=== PATIENT | female | born 1995 ===

== ENCOUNTER → 2025-03-29 11:33 | Outpatient (CLI) | payer OTHER, SELFPAY ==
[2025-03-29 14:18] LABS: Urine N gonorrhoeae NOT DETECTED
[2025-03-29 14:43] LABS: Urine Chlamydia NOT DETECTED
== END ==
PROVIDERS: Referring Provider Obstetrics & Gynecology; Visit Provider Obstetrics & Gynecology
DX: Z11.3 Encounter for screening for infections with a predominantly sexual mode of transmission (principal); Z3A.01 Less than 8 weeks gestation of pregnancy
CPT/HCPCS: 87491; 87591

== ENCOUNTER → 2025-04-18 09:56 | Outpatient (CLI) | payer OTHER, SELFPAY ==
[2025-04-18 10:14] LABS: Appearance Urine UA CLEAR; Bilirubin Urine UA NEGATIVE (NEGATIVE); Color Urine UA YELLOW; Glucose Urine UA NEGATIVE (Negative); Ketones Urine UA NEGATIVE (NEGATIVE); Leukocyte Esterase Urine UA 2+ (NEGATIVE); Nitrite Urine UA NEGATIVE (Negative); Occult Blood Urine UA NEGATIVE (Negative); Protein Urine UA NEGATIVE (Negative); Specific Gravity Urine UA 1.010 (1.000-1.035); Urobilinogen Urine UA 0.2 E.U./dL (0.2)
[2025-04-18 10:16] LABS: pH Urine UA 7.0 (4.5-8.0)
== END ==
PROVIDERS: Referring Provider Obstetrics & Gynecology; Visit Provider Obstetrics & Gynecology
DX: O26.899 Other specified pregnancy related conditions, unspecified trimester (principal); M54.50 Low back pain, unspecified
CPT/HCPCS: 81001; 87086

== ENCOUNTER → 2025-04-24 09:15 | Outpatient (CLI) | payer OTHER, SELFPAY ==
[2025-04-24 10:16] LABS: Add Manual Diff / Slide Review NO; Hematocrit 37.2 % (36-46); Hemoglobin 12.9 g/dL (12.0-16.0); Lymphocytes Absolute Auto 1600 /uL (1100-4500); Mean Corpuscular HGB Conc 34.7 % (30-36); Mean Corpuscular Hemoglobin 31.7 PG (26-34); Mean Corpuscular Volume 91.5 fL (80-100); Platelet Count 217 X10^3/uL (150-400)
[2025-04-24 10:38] LABS: Natera Collection Specimen Collected
[2025-04-24 11:02] LABS: Hepatitis B Surface Antigen NEGATIVE s/c (NEGATIVE)
[2025-04-24 11:20] LABS: HIV 1 & 2 Ab/Ag 4th Gen Combo NEGATIVE (NEGATIVE); Hep C Virus Ab w/Reflex Quant NEGATIVE s/c (NEGATIVE)
[2025-05-02 10:12] LABS: RPR QNT Non Reactive titer (NonRea<1:1); RPR Quant + RPR Abs Non Reactive (Non Reactive)
== END ==
PROVIDERS: Referring Provider Obstetrics & Gynecology; Visit Provider Obstetrics & Gynecology
DX: Z34.81 Encounter for supervision of other normal pregnancy, first trimester (principal); Z34.90 Encounter for supervision of normal pregnancy, unspecified, unspecified trimester; Z3A.10 10 weeks gestation of pregnancy
CPT/HCPCS: 36415; 80055; 86787; 86803; 86850; 86900; 86901; 87389

== ENCOUNTER → 2025-05-17 13:10 | Outpatient (CLI) | payer OTHER, SELFPAY ==
[2025-05-18 14:08] LABS: Trichomoas vaginalis Negative (Negative)
== END ==
PROVIDERS: PCP Family Medicine; Visit Provider Obstetrics & Gynecology
DX: N89.8 Other specified noninflammatory disorders of vagina (principal)
CPT/HCPCS: 87480; 87510; 87660

== ENCOUNTER → 2025-07-02 10:43 | Outpatient (CLI) | payer OTHER, SELFPAY ==
--- NOTE | 2025-07-02 10:45 | DI.US.S_ITS ---
PROCEDURE: US OB >= 14 WEEKS FETUS INDICATIONS: 20 weeks anatomy OUTSIDE/PRIOR DATING DATA: Last menstrual period (LMP): 02/10/2025 LMP-based estimated date of delivery (KEYONNA): 11/17/2025. First dating scan (date and location): 03/29/2025. Estimated date of delivery (KEYONNA) from first dating scan: 11/15/2025 Working KEYONNA is 11/17/2025. TECHNIQUE: Real-time scanning was performed of the fetus, with image documentation and biometric measurements. Endovaginal scanning: No COMPARISON: [facility], , OB <= 14 WEEKS FETUS, 05/22/2025, 8:30. [facility], , OB >= 14 WEEKS FETUS, 03/29/2025, 11:56. FINDINGS: General: A single living intrauterine gestation is present. Presentation: Vertex. Placenta: Placental position is anterior , without previa. Amniotic fluid index: 15.4 cm, normal range is 5-24 cm. Single deepest vertical pocket is 5.1 cm. heart rate: 141 beats per minute. Maternal cervical canal: 4.5 cm long. Normal lower limit is 2.5 cm. biometrics: Biparietal diameter: 21 weeks 2 days Head circumference: 20 weeks 2 days Abdominal circumference: 21 weeks 6 days Femur length: 21 weeks 2 days Clinically estimated gestational age: 20 weeks 2 days Composite gestational age from present scan: 21 weeks 1 day Estimated weight and percentile: 426 g; 96 percentile Anatomic survey: Neuro: Ventricles are non-dilated at less than 10 mm. Cisterna magna is normal at 3-11 mm. Cerebellum is normal in size and morphology. Nuchal skin fold: Normal at less than 6 mm between 14-21 weeks gestational age. Face: Nose and lips, facial profile are normal. Spine: No evidence for spina bifida. Heart: 4-chambered heart is present, with normal ventricular outflow tracts. Diaphragm: Diaphragm is intact. Stomach: Left-sided stomach is present. Kidneys: No hydronephrosis. Normal is less than 5 mm in 2nd trimester, less than 7 mm in 3rd trimester. Cord: 3-vessel cord has orthotopic insertion. Placental cord insertion site not well seen. Bladder: Normal in size. Extremities: All 4 extremities identified. IMPRESSION: 1. Single living IUP redemonstrated and interval growth is greater than expected with estimated weight 96 percentile. Early developing macrosomia cannot be excluded and short-term follow-up growth is recommended. 2. Placental cord insertion site not well seen. Anatomic survey otherwise is normal. Short-term follow-up. We strive to produce accurate, complete, and clear reports of imaging services. To assist us in improving patient care, this report was composed using standard report templates and voice recognition software. Therefore, it may contain abnormal punctuation, insertions and/or omissions. Occasional wrong-word or sound-alike substitutions may occur. Though we review the report and make efforts to correct it, we do recommend that the report be read carefully in proper context to recognize any text inaccuracies. Dictated by: Christiano VALDOVINOS Interpreted: Robi Saunders MD on 07/02/2025 at 12:56 Transcribed by: MICHELL on 07/02/2025 at 12:58 Approved by: Robi Saunders M.D. on 07/03/2025 at 15:02
== END ==
PROVIDERS: PCP Family Medicine; Referring Provider Obstetrics & Gynecology; Visit Provider Obstetrics & Gynecology
DX: Z34.82 Encounter for supervision of other normal pregnancy, second trimester (principal); Z3A.21 21 weeks gestation of pregnancy
CPT/HCPCS: 76811

== ENCOUNTER 2025-07-25 16:48 | Outpatient (CLI) | payer OTHER, SELFPAY | END 2025-07-25 17:27 | disposition home or self-care (01) | LOC: LABOR 17:22 → OB 07-26 07:15 | PROVIDERS: PCP Family Medicine; Referring Provider Obstetrics & Gynecology; Visit Provider Obstetrics & Gynecology | DX: O36.8120 Decreased fetal movements, second trimester, not applicable or unspecified (principal); Z3A.23 23 weeks gestation of pregnancy | CPT/HCPCS: 59025; G0378; G0379 ==

== ENCOUNTER → 2025-07-31 08:27 | Outpatient (CLI) | payer OTHER, SELFPAY ==
--- NOTE | 2025-07-31 08:28 | DI.US.S_ITS ---
PROCEDURE: US OB FOLLOW UP INDICATIONS: PLACENTAL CORD INSERTION NOT SEEN/MACROSOMIA OUTSIDE/PRIOR DATING DATA: The calculations are made using the KEYONNA of 11/17/2025. TECHNIQUE: Real-time scanning was performed of the fetus, with image documentation and biometric measurements. Endovaginal scanning: Not performed COMPARISON: [facility], OB >= 14 WEEKS FETUS, 07/02/2025, 11:16. FINDINGS: General: A single living intrauterine gestation is present. Presentation: Vertex. Placenta: Placental position is anterior , without previa. Amniotic fluid index: 19.3 cm, normal range is 5-24 cm. Single deepest vertical pocket is 7.1 cm. heart rate: 173 beats per minute. Maternal cervical canal: 3.9 cm long. Normal lower limit is 2.5 cm. biometrics: Biparietal diameter: 6.3 cm, 25 weeks 2 days Head circumference: 23.3 cm, 25 weeks 2 days Abdominal circumference: 21.9 cm, 26 weeks 3 days Femur length: 4.3 cm, 23 weeks 6 days Clinically estimated gestational age: 24 weeks 3 days Composite gestational age from present scan: 25 weeks 2 days Estimated weight and percentile: 799 g, 81% Other: Urinary bladder appears prominent. IMPRESSION: 1. Single live intrauterine consistent with 25 weeks and 2 days. 2. Estimated weight is in the 81st percentile. 3. Normal placental cord insertion. 4. Urinary bladder appears prominent. We strive to produce accurate, complete, and clear reports of imaging services. To assist us in improving patient care, this report was composed using standard report templates and voice recognition software. Therefore, it may contain abnormal punctuation, insertions and/or omissions. Occasional wrong-word or sound-alike substitutions may occur. Though we review the report and make efforts to correct it, we do recommend that the report be read carefully in proper context to recognize any text inaccuracies. Dictated by: To Painter M.D. on 07/31/2025 at 9:30 Approved by: To Painter M.D. on 07/31/2025 at 9:33
== END ==
PROVIDERS: PCP Family Medicine; Referring Provider Obstetrics & Gynecology; Visit Provider Obstetrics & Gynecology
DX: O09.92 Supervision of high risk pregnancy, unspecified, second trimester (principal); O34.12 Maternal care for benign tumor of corpus uteri, second trimester; D25.9 Leiomyoma of uterus, unspecified; N96 Recurrent pregnancy loss; Z3A.24 24 weeks gestation of pregnancy
CPT/HCPCS: 76816

== ENCOUNTER → 2025-08-02 07:03 | Outpatient (CLI) | payer OTHER, SELFPAY ==
[2025-08-02 09:34] LABS: Hematocrit 32.0 % (36-46); Hemoglobin 11.2 g/dL (12.0-16.0)
[2025-08-02 09:58] LABS: GTT (PREG) 1 Hour PP 50gm Dose 110 mg/dL (76-139)
== END ==
PROVIDERS: PCP Family Medicine; Referring Provider Obstetrics & Gynecology; Visit Provider Obstetrics & Gynecology
DX: Z13.1 Encounter for screening for diabetes mellitus (principal); Z13.0 Encounter for screening for diseases of the blood and blood-forming organs and certain disorders involving the immune mechanism
CPT/HCPCS: 36415; 82950; 85014; 85018

== ENCOUNTER 2025-09-13 08:31 | Outpatient (CLI) | payer OTHER, SELFPAY | END 2025-09-13 09:19 | disposition home or self-care (01) | LOC: LABOR 09:05 → OB 14:19 | PROVIDERS: PCP Family Medicine; Referring Provider Obstetrics & Gynecology; Visit Provider Obstetrics & Gynecology | DX: O36.8330 Maternal care for abnormalities of the fetal heart rate or rhythm, third trimester, not applicable or unspecified (principal); Z3A.30 30 weeks gestation of pregnancy | CPT/HCPCS: 59025; G0378; G0379 ==

== ENCOUNTER 2025-10-05 13:58 | Outpatient (CLI) | payer OTHER, SELFPAY | END 2025-10-05 14:50 | disposition home or self-care (01) | LOC: OB 10-07 08:48 | PROVIDERS: PCP Family Medicine; Referring Provider Obstetrics & Gynecology; Visit Provider Obstetrics & Gynecology | DX: O26.893 Other specified pregnancy related conditions, third trimester (principal); R03.0 Elevated blood-pressure reading, without diagnosis of hypertension; Z3A.33 33 weeks gestation of pregnancy | CPT/HCPCS: 59025; G0378; G0379 ==